=== PATIENT | female | born 1990 ===

== ENCOUNTER 2016-08-24 10:03 | Day surgery (SDC) | payer SELFPAY ==
[2016-08-24] VITALS (11 sets, daily range): BP systolic 90–114; BP diastolic 46–79; PULSE 65–83; RESP 13–18; O2SAT 95–100
[~2016-08-24 10:03] MED LIST: Ascorbic Acid PO; FERR-74 PO; IBUP-1827 PO
--- NOTE | 2016-08-24 11:40 | ED.REPORT ---
HPI-Abd Pain F Under 40 Date of Service August 24, 2016 ED Provider: Luis Dudley DO The patient is a 26 yo Mixte[place] female who presents to the ED for acute onset of bilateral lower abdominal cramping onset 0600am this morning. Patient reports that she passed a big clot, about the size of a golf ball, soon after the onset of the abdominal pain. The pain is similar to a bad menstrual cramping. She also admits to bilateral lower back pain. She reports to have a Nexplanon placed after her last delivery 1yr2mo ago. However, she had it removed in 01/2016 for desire to get . She reports no menstrual period every since the Nexplanon placement and even after it was removed. She admits to being sexually active. She denies any other symptoms, including nausea, vomiting, dysuria, fever, chills, headache, or dizziness. No aggravating or alleviating factors. Patient does not have a doctor. Dr. Connie Harvey is her HOUSING INSTALLER at [facility]. Patient denies any medical issue or taking any medication. There is no qunb per diem interpreter available and the foreign language interpreter has tried to talk to the patient, but she seems confused. Nursing Notes Stated Complaint: STOMACH ACHE/ 1 MONTH Chief Complaint: Female Abdominal Pain Nursing Notes Reviewed: Yes Allergies: Coded Allergies: No Known Allergies (Verified Allergy, Unknown, 06/20/15) Scheduled ([Ascorbic Acid]) 500 MG TABLET 500 MG PO BIDWM Ferrous Sulfate (Feosol) 325 Mg Tablet 325 MG PO BIDWM Scheduled PRN Ibuprofen (Ibuprofen) 600 Mg Tablet 600 MG PO Q6H PRN PRN For Mild Pain General Time Seen by MD: 11:39 Chief Complaint Abdominal pain, Pelvic pain, Vaginal bleeding Hx Obtained From: Patient Arrived By: Walk-in Sudden in Onset?: Yes Onset Occurred: 1 - 4 hours ago Symptom Duration: Since onset Progression since Onset: Constant Location: : Flank left: Flank right: LLQ: Lower-adnexal region L: Lower- adnexal region R: RLQ Quality: Painful, Throbbing Radiation: : Does not radiate Severity: Current: Mild Severity: Maximum: Moderate Associated with: Reports: Back pain, Vaginal bleeding, Denies: Anorexia, Chest pain, Chills, Constipation, Diarrhea, Dysuria, Fever , Nausea, Shortness of breath, Urinary frequency, Urinary tract symptoms, Vomiting Pertinent Negative: Pt denies other symptoms Status: Positive - ED urine HCG Sexual History / Control: Reports Pt is sexually active : 2 Para: 2 Recent Healthcare: No recent doctor visit, No recent hospitalization Similar Sx Previous: No Risk Factors Ectopic Risk Stratification No risk factors Past Medical History Past Medical History None Past Surgical History None Family History Noncontributory Smoking History Never Smoker Social History Alcohol Use: Denies alcohol use Drug Use: Denies drug use Other Social History: , Local resident Ambulatory Status Independent Review of Systems Constitutional: Denies: Chills, Fatigue, Fever, Weakness - generalized Respiratory: Denies: Dyspnea on exertion, Hemoptysis, Non-productive cough, Pleuritic pain, Shortness of breath, Wheezing Cardiovascular: Denies: Chest pain, Edema, Orthopnea, Palpitations, Syncope GI: Reports: Abdominal pain, Anorexia, Denies: Constipation, Diarrhea, Dysphagia, Nausea Female: Reports: Flank pain, Pelvic pain, , Vaginal bleeding - abnl , Denies: Urinary frequency, Urinary urgency Musculoskeletal: Reports: Back pain, Denies: Joint pain, Joint swelling, Lumbar pain Complete sys rev & neg: except as marked. Physical Exam Initial Vital Signs Vital Signs (First) Date Time Temp Pulse Resp B/P Pulse Ox O2 Delivery O2 Flow Rate FiO2 08/24/16 10:52 37.0 83 15 107/70 100 08/24/16 17:15 Room Air Initial VS: Reviewed General/Constitutional: Awake, Alert, No acute distress, Well appearing, Well developed, Well nourished, Cooperative, Not toxic appearing Respiratory / Chest: Atraumatic, Breath sounds NL, Breath sounds = bilat, No respiratory distress, No rales Cardiovascular: Heart rate NL, Regular rhythm, Heart sounds NL, No murmurs, No rubs, Pulses = bilaterally Abdomen: Atraumatic, Soft, No guarding, No rebound, BS normoactive, No distention Tenderness/Guarding/Rebound: Positive: Tender LLQ... (Moderate), Tender RLQ... (Moderate), Tender flank L, Tender flank R, Tender suprapubic Back: Atraumatic Flank / Spine / Paraspinal: Positive: Flank tender L, Flank tender R Head / Eyes: Atraumatic, Normocephalic, PERRL, EOMI Skin: Atraumatic, Color NL, No rash Female Genitourinary: Bridges Supervisor present (Pit Furnace Melter Ev), No adnexal mass Vaginal Bleeding / Discharge: Positive: Bleeding moderate, Clots present, Discharge bloody, Tissue present Pelvic Exam: Positive: Uterus tender Neurologic: Oriented X3, Speech NL Interpretation & Diagnostics Lab Results Interpretation Result Diagram: 08/24/16 1644 Test 08/24/16 11:50 08/24/16 13:20 08/24/16 14:30 08/24/16 16:44 Urine Color Yellow (YELLOW) Urine Appearance Slightly cloudy Urine pH 5.5 (5.0-8.0) Urine Specific [place] 1.025 (1.003-1.035) Urine Protein Tracemg/dL (NEG,TRACE) Urine Glucose (UA) Negativemg/dL (NEGATIVE) Urine Ketones Negativemg/dL (NEGATIVE) Urine Occult Blood Large (NEGATIVE) Urine Nitrite Negative (NEGATIVE) Urine Bilirubin Negative (NEGATIVE) Urine Urobilinogen Normalmg/dL (NORMAL) Urine Leukocyte Esterase Negative (NEGATIVE) Urine RBC >50/hpf (0-2) Urine WBC 0-5/hpf (0-5) Urine Epithelial Cells Occasional/hpf (NONE-MOD) Urine Crystals None seen (NONE SEEN) Urine Bacteria Few/hpf (NONE-FEW) Urine Hyaline Casts None/lpf (NONE) Urine Granular Casts None seen (NONE SEEN) Urine Waxy Casts None seen (NONE SEEN) Urine Red Blood Cell Casts None seen (NONE SEEN) Urine White Blood Cell Casts None seen (NONE SEEN) Urine Mucus Present (None Seen) Urine Trichomonas None seen (NONE SEEN) Urine Yeast None (NONE SEEN) Urinalysis Comment None Urine Culture Reflexed Not indicated White Blood Count 9.4th/mm3 (3.8-10.1) Red Blood Count 5.08mil/mm3 (3.90-5.20) Mean Corpuscular Volume 55.9fL (81-100) Mean Corpuscular Hemoglobin 16.3pg (27.0-35.0) Mean Corpuscular Hemoglobin Concent 29.2% (32.0-37.0) Red Cell Distribution Width 21.1% (12.3-15.4) Platelet Count 457bil/L (150-400) HCG Beta Subunit 2274mIU/mL Hold Urine Received (Received) Hemoglobin 7.7g/dL (12.0-15.6) Hematocrit 26.2% (35.0-46.0) Lab Results Interpretation: Significant microcytic anemia US Focused OB IMPRESSION: Endometrial lining thickness of 14.3 mm with a possible fundal gestational sac which if in fact does represent a viable gestation it would be an estimated gestational age of 5 weeks 3 days, plus or -7 days. Correlation with quantitative beta hCG is recommended to assist in determining whether this correlates with the suspected gestational age of this patient. The correlation with quantitative beta hCG may be necessary over several days to determine whether a viable gestation is present. Currently there is no sonographic evidence for ectopic but ectopic has not been entirely excluded. Exam Performed by: Radiologist Re-Eval/Medical Decision Med Decision/Clinical Course 26 yo female with no history of who presents to the ED with sudden onset of lower abdominal cramping with passing of vaginal tissue at 0600 today. She had a Nexplanon removed in 01/2016, but she never has any menstrual period for over a year. She is sexually active, but is not aware that she is or not. Urine test in the ER is positive, which correlates with the beta HCG of 2274 and the U/S finding of a possible fundal gestational sac which if in fact does represent a viable gestation it would be an estimated gestational age of 5 weeks 3 days, plus or -7 days. There is no sonographic evidence for ectopic . On exam, patient was found to have fundal tenderness with significant amount of vaginal bleeding and tissue on the pelvic exam. Her cervix was found to be about 1-2 cm dilated, which confirmed the likelihood of an incomplete . Dr. Ware (HOUSING INSTALLER) agreed with the plan to admit the patient and perform an urgent D&C today. Patient also has significant microcytic anemia with hemoglobin of 8.3 that dropped to 7.7. Type and cross was done and will continue to monitor the patient 's H/H for possible transfusion. Patient denies history of anemia, but Iron supplement is on her medication list. Further workup for the anemia to rule out iron deficiency vs. Thalassemia was suggested to the patient, but will likely be done as outpatient. Patient was started on IVF with NS @ 100mls/hr and a dose of Toradol IV 30mg once in the ED. Patient was transferred to the OR in stable condition. Source of Hx: Old records Re-Evaluation/Progress : Time of Eval: 15:00 )( Re-Eval Abdomen: Soft Patient Status: Condition improved Re-Evaluation/Progress Note: Patient reports improvement of her abdominal pain. Pelvic exam was done by me around 1500 with Ev (per diem interpreter) as a cardiac cath tech. There was significant amount of vaginal bleeding and tissues that the os could not be visualized. Consultation : Referral / Consult Name: Matt Ware MD Consulted With: On-call physician (HOUSING INSTALLER) Hyster Driver: Agrees with eval, Accepts admit Note: Case was discussed with Dr. Ware for possible D&C. Dr. Ware evaluated the patient at 1700 with a bimanual exam and noted the os to be 1-2cm dilated. He will contact the OR for emergent D&C. Differential Diagnosis: Positive: Acute abdominal pain, Appendicitis, Cholecystitis, Cholelithiasis, Constipation, Ectopic preg ruptured, Ectopic , Gastritis, Gastroenteritis, Intrauterine , Malignancy, Ovarian cyst, Ovarian torsion, Urinary tract infection Counseled Regarding: Diagnosis, Lab results Discharge & Departure Departure Notes Dr. Ware admitted the patient. Primary Impression: Incomplete Additional Impression: Microcytic anemia Disposition: Home Discharge Condition All VS Reviewed: Yes Condition: Stable Referrals: oCnnie Harvey MD (PCP) Crit Care Except Billable Proc Time Spent: 75-104 minutes Services Performed: Patient management by me, Time spent at bedside, Reviewing test results Critical Care Notes: see MDM Scribe Attestation Portions of this note were transcribed by Val Osorio. I, Dr. Dudley personally performed the history, physical exam and medical decision-making; I reviewed and confirmed the accuracy of the information in the transcribed note. Signed by: Renetta Mujica, 08/24/2016 at 1215. Attending Statment The patient was seen and examined together with Dr. Jensen on 08/24/16 and I agree with the history, exam and plan as outlined in the note above. copies to: Connie Harvey MD, Timothy S DO August 24, 2016 11:40 Val Osorio August 24, 2016 12:08 Devin Jensen DO August 24, 2016 15:11
[2016-08-24 13:02] LABS: APPEARANCE,URINE SLIGHTLY CLOUDY (CLEAR,HAZY); COLOR,URINE YELLOW (YELLOW); OCCULT BLOOD,URINE LARGE (NEGATIVE); PH,URINE 5.5 (5.0-8.0); UROBILINOGEN,URINE NORMAL (NORMAL)
[2016-08-24 13:38] LABS: Mean Corpuscular Hemoglobin 16.3 pg (27.0-35.0); Mean Corpuscular Volume 55.9 fL (81-100)
[2016-08-24] MEDS ORDERED: 0.9% Sodium Chloride 1,000 ML IV SCH (15:00)
--- NOTE | 2016-08-24 15:10 | DRSVH ---
PROCEDURE: US PELVIC SONOGRAM + TRANSVAGINAL SONOGRAM INDICATIONS: early vaginal bleeding TECHNIQUE: Real-time scanning was performed of the pelvic organs, with image documentation. Additional endovagi nal scanning was necessary due to incomplete visualization of the adnexal and endometrial structures by transabdominal scanning. COMPARISON: None. FINDINGS: (orthogonal measurements) Uterus size: 5.7 x 7.6 x 10.1 cm, anteverted Endometrium thickness: 14.3 with a possible gestational sac in the fundal portion of the endometrial canal, which if this does in fact represent a viable intrauterine gestation would have a gestational age estimate of 5 weeks 3 days, plus or -7 days. Right ovary size: 2.3 x 2.2 x 2.6 cm Left ovary size: 2.7 x 2.4 x 1.8 cm Transabdominal scanning: Limited scanning through the kidneys shows no hydronephrosis. No pathologi c free abdominal or pelvic fluid. Endovaginal scanning: Uterus: Uterus is normal in size and appearance. Endometrium is within normal physiologic limits. Ovaries: Within normal physiologic limits. IMPRESSION: Endometrial lining thickness of 14.3 mm with a possible fundal gestational sac which if i n fact does represent a viable gestation it would be an estimated gestational age of 5 weeks 3 days, plus or -7 days. Correlation with quantitative beta hCG is recommended to assist in determining whet her this correlates with the suspected gestational age of this patient. The correlation wit h quantitative beta hCG may be necessary over several days to determine whether a viable gestation is present. Currently there is no sonographic evidence for ectopic but ectopic has not been entirely excluded. Dictated by: Reid Jacobsen M.D. on 08/24/2016 at 15:05 Approved by: Reid Jacobsen M.D. on 08/24/2016 at 15:08
--- NOTE | 2016-08-24 17:54 | PCM.HPANE ---
Patient Data Date of Service: August 24, 2016 Surgeon Admitting Provider: Attending Provider: [facility] Other Provider: Reason for Visit Stomach Ache/ 1 Month Ht/WT & BMI Body Mass Index Allergies Coded Allergies: No Known Allergies (Verified Allergy, Unknown, 06/20/15) Past Anesthesia History Anesthesia History: Denies:: Abnormal Airway, Anesthesia Reactions, Difficult Intubation, Fam Anesthesia Reaction, Fam Malignant Hypertherm, Malignant Hyperthermia Diabetes History Hx Diabetes?: No MRSA MRSA: No Medications Hypertension Medication: No Home Meds Incl Beta Pilar: No Active Scripts Ferrous Sulfate (Feosol)325 Mg [id number] Mg PO BIDWM anemia #180 TABLET Prov:Kasia Booker MD 06/21/15 Ibuprofen 600 Mg [id number] Mg PO Q6H PRN For Mild Pain #60 TABLET Prov:Kasia Booker MD 06/21/15 [Ascorbic Acid] (Vitamin C)500 MG TABLET No Conflict [id number] Mg PO BIDWM Use with iron to help absorb #180 Prov:Kasia Booker MD 06/21/15 History History of ENT Problems?: No HEENT History: Denies:: Abnormal Airway Cataracts Difficult Intubation Dysphagia Glaucoma Hearing Problem Sinus Problem TMJ Denture Type: None Teeth Condition: Within Normal Limits Hx of Heart Problems?: No Cardiovascular History: Denies:: Congestive Heart Failure Hypertension Hx of Respiratory Problem?: No Respiratory History: Denies:: Tuberculosis Hx Neurologic Problems?: No Hx of GI Problems?: No Hx of Problems?: No Other History/Comment incomplete ab (present) Hx Musculoskeletal Problems?: No Hx of Psycho/Social Problems?: No Hx Surgeries?: No Hx Any Other Health Problems?: No Hx Diabetes: No Hx Alcohol Use: NoHx Substance Use: No Smoking Status: Never Smoker Have You Smoked inLast 12 mo: No Stop/Bang Treated for Sleep Apnea?: No Do You Have a CPAP Machine?: No RAINE Risk Assessment: Low Risk, <3 Yes Risk Assessment Category Category 1A: Patient has history of documented sleep apnea, and HAS NOT received any narcotic, sedative or anesthesia administration during this stay. Category 1B: Patient has history of documented sleep apnea, and HAS received any narcotic , sedative or anesthesia administration during this stay Category 2: Patient has SUSPECTED Obstructive Sleep Apnea, and HAS received any narcotic , sedative or anesthesia administration during this stay. Category 3: Patient has SUSPECTED Obstructive Sleep Apnea and HAS NOT received narcotic, sedative or anesthesia administration during this stay. Category 4: Outpatient in Procedural Areas with known sleep apnea or who screen positive for High Risk via the STOP/BANG questionnaire. Exam Exam Vital Signs Vital Signs Date Time Temp Pulse Resp B/P Pulse Ox O2 Delivery O2 Flow Rate FiO2 08/24/16 17:15 37.3 80 16 109/68 99 Room Air 08/24/16 10:52 37.0 83 15 107/70 100 General Appearance: Alert, Oriented X3, Cooperative, No Acute Distress HEENT/AIRWAY: MP 2 Lungs: Clear to Auscultation, Normal Air Movement Heart: Exam Unremarkable, Regular Rate/Rhythm Meds/Labs/Diagnostics Admission Meds Current Medications Sodium Chloride (Normal Saline) 1,000 ml @ 100 mls/hr Q10H IV Last administered on 08/24/16 15:56; Start 08/24/16 at 15:00 Ketorolac Tromethamine (Toradol Inj) 30 mg ONCE ONCE IVPUSH Last administered on 08/24/16 15:56; Start 08/24/16 at 15:00; Stop 08/24/16 at 15:16; Status DC Labs Test 08/24/16 11:50 08/24/16 13:20 08/24/16 14:30 08/24/16 16:44 Urine Color Yellow (YELLOW) Urine Appearance Slightly cloudy Urine pH 5.5 (5.0-8.0) Urine Specific [place] 1.025 (1.003-1.035) Urine Protein Tracemg/dL (NEG,TRACE) Urine Glucose (UA) Negativemg/dL (NEGATIVE) Urine Ketones Negativemg/dL (NEGATIVE) Urine Occult Blood Large (NEGATIVE) Urine Nitrite Negative (NEGATIVE) Urine Bilirubin Negative (NEGATIVE) Urine Urobilinogen Normalmg/dL (NORMAL) Urine Leukocyte Esterase Negative (NEGATIVE) Urine RBC >50/hpf (0-2) Urine WBC 0-5/hpf (0-5) Urine Epithelial Cells Occasional/hpf (NONE-MOD) Urine Crystals None seen (NONE SEEN) Urine Bacteria Few/hpf (NONE-FEW) Urine Hyaline Casts None/lpf (NONE) Urine Granular Casts None seen (NONE SEEN) Urine Waxy Casts None seen (NONE SEEN) Urine Red Blood Cell Casts None seen (NONE SEEN) Urine White Blood Cell Casts None seen (NONE SEEN) Urine Mucus Present (None Seen) Urine Trichomonas None seen (NONE SEEN) Urine Yeast None (NONE SEEN) Urinalysis Comment None Urine Culture Reflexed Not indicated White Blood Count 9.4th/mm3 (3.8-10.1) Red Blood Count 5.08mil/mm3 (3.90-5.20) Mean Corpuscular Volume 55.9fL (81-100) Mean Corpuscular Hemoglobin 16.3pg (27.0-35.0) Mean Corpuscular Hemoglobin Concent 29.2% (32.0-37.0) Red Cell Distribution Width 21.1% (12.3-15.4) Platelet Count 457bil/L (150-400) HCG Beta Subunit 2274mIU/mL Hold Urine Received (Received) Hemoglobin 7.7g/dL (12.0-15.6) Hematocrit 26.2% (35.0-46.0) Plan Impression Patient chart reviewed, patient interviewed and anesthestic plan with risks, benefits, and alternatives discussed, and informed consent obtained. NPO per Anesth. Guidelines: Yes ASA Physical Status: ASA1 Normal Healthy Anesthetic Plan: GA Bene/Risks/Altern/Consents: Yes HP Complete Prior to Induction: Yes Trino Collazo MD August 24, 2016 17:54
[2016-08-24] MEDS ORDERED: fentaNYL-PF 50 mCg/mL 2 mL Inj ONE (17:59)
[2016-08-24] MEDS ORDERED: Dexamethasone 4 mg/mL Inj ONE (17:59)
[2016-08-24] MEDS ORDERED: Methylergonovine 0.2 mg/mL Inj ONE (17:59)
[2016-08-24] MEDS ORDERED: Ondansetron 2 mg/mL 2 mL Inj ONE (17:59)
[2016-08-24] MEDS ORDERED: Propofol 10,000 mCg/mL 20 mL Inj ONE (17:59)
--- NOTE | 2016-08-24 18:07 | HP ---
[address] [address] HISTORY AND PHYSICAL PATIENT: LOIS ORTIZ : 1990 MR#: [id number] ADMIT: 08/24/2016 JOB ID: [id number] DATE: 08/24/2016 HISTORY OF PRESENT ILLNESS: The patient is a 26-year-old, 3, para 2, who presented to the emergency department with vaginal bleeding with clots. The patient has a history of two spontaneous vaginal deliveries, following the last delivery, she had Nexplanon implant placed, it was removed in January 2016 when she decided that she may want to get . Since removal of the implant, the patient has not had any menstrual periods. She presented to the emergency department today with diffuse bleeding with clots. The ultrasound was done and showed increased endometrial thickness, small 5 mm cystic structure that may represent gestational sac corresponding to 5 weeks and 3 days of . The beta quantitative hCG was 2200. The patient had profuse bleeding with clots and passing tissue. ALLERGIES: NKDA. MEDICAL HISTORY: Noncontributory. FAMILY HISTORY: Noncontributory. SOCIAL HISTORY: Patient denies smoking, alcohol use, or illicit recreational drug use. PHYSICAL EXAMINATION: Vital signs: Temperature 37.3, pulse 80, respiratory rate 16, blood pressure 109/68, pulse oximetry on room air is 99. HEENT: PERRLA, pale mucosa. Chest: Clear bilaterally. No adventitious sounds. Good respiratory effort. Cardiovascular: Regular rate and rhythm. The abdomen is nondistended, moderately tender in the suprapubic area. There is no rebound and no rigidity. Vaginal exam: There is diffuse bleeding. The cervix is 1.5 cm dilated, the uterus is moderately tender on bimanual exam. Adnexa nontender. Extremities: No pitting edema. LABS: WBC count 9.4, hemoglobin 7.7, hematocrit 26.0. Platelets 457. There is a slight drop in the level of hematocrit from 28.4-26.0 within half an hour of time when the labs were repeated. The ultrasound was done and showed uterus measuring 5.7 x 7.6 x 10.1 cm, endometrial thickness is 14.3 mm. The ovaries are normal in size bilaterally. There are questionable cystic structures that may represent gestational sac. The level of beta hCG is 2274. The urinalysis shows large amount of blood, negative for nitrates. Negative leukocyte esterase. ASSESSMENT AND PLAN: The patient is a 26-year-old, 3, para 2, presents with incomplete spontaneous miscarriage, early , bleeding, hemodynamically stable. The patient is Mezte[place] speaking and all communication and consent was obtained through the full time staff interpreter. The consent was obtained for dilation and curettage. The risks and benefits of the procedure were explained, risks including, but not limited to, bleeding, infection, uterine perforation. The consent for transfusion and for disposal of tissue was obtained as well. IV fluid started with lactated Ringer at 125 mL/h. The patient is going to the operating room. MARGARITAD
[2016-08-24] MEDS ORDERED: Lactated Ringer's 1,000 ML IV ONE (18:21)
[2016-08-24] MEDS ORDERED: Lactated Ringer's 500 ML IV PRN (18:36)
[2016-08-24] MEDS ORDERED: Lactated Ringer's 1,000 ML IV SCH (18:36)
[2016-08-24] MEDS ORDERED: Ondansetron 2 mg/mL 2 mL Inj IVPUSH PRN ×2 (18:40→19:05)
[2016-08-24] MEDS ORDERED: Dexamethasone 4 mg/mL Inj IVPUSH PRN (18:40)
[2016-08-24] MEDS ORDERED: EPHEDrine Sulfate 50 mg/mL Inj IVPUSH PRN (18:40)
[2016-08-24] MEDS ORDERED: Labetalol 5 mg/mL 4 mL Inj IV PRN (18:40)
[2016-08-24] MEDS ORDERED: Phenylephrine 10,000 mCg/mL Inj IVPUSH PRN (18:40)
[2016-08-24] MEDS ORDERED: fentaNYL-PF 50 mCg/mL 2 mL Inj IVPUSH PRN (18:40)
[2016-08-24] MEDS ORDERED: HYDROmorphone 1 mg/mL Inj IVPUSH PRN (18:40)
--- NOTE | 2016-08-24 19:03 | PCM.DIMED ---
Discharge Instructions Date of Service August 24, 2016 Dates of Hospitalization Diet Discharge Diet: No restrictions Activity Discharge Activity: No restrictions Call your provider Call your provider for: Fever or Chills, Shortness of breath, Bleeding, Chest pain, Vomitting, Excessive diarrhea, Weakness (unilateral) Patient Instructions Follow-up with PCP in: 2 weeks Matt Ware MD August 24, 2016 19:03
[2016-08-24] MEDS ORDERED: oxyCODONE-Acetamin 5-325 mg Tablet PO PRN (19:05)
[2016-08-24] MEDS ORDERED: FERR-74 PO (19:05)
[2016-08-24] MEDS ORDERED: diphenhydrAMINE 25 mg Capsule PO PRN (19:05)
[2016-08-24] MEDS ORDERED: IBUP-1827 PO (19:05)
--- NOTE | 2016-08-24 19:23 | PCM.ANEP1 ---
Post Anesthesia PACU Phase 1 Assessment Date of Service: August 24, 2016 Vital Signs Vital Signs Date Time Temp Pulse Resp B/P Pulse Ox O2 Delivery O2 Flow Rate FiO2 08/24/16 19:15 67 13 108/67 100 Simple Mask 10 08/24/16 19:10 67 13 90/52 100 Simple Mask 15 08/24/16 19:05 65 13 90/49 100 Simple Mask 15 08/24/16 19:00 36.6 71 13 93/46 100 Simple Mask 15 08/24/16 17:15 37.3 80 16 109/68 99 Room Air Anesthetic Administered: GA Level of Alertness: Sleepy, easy to arouse RIVERA's with Equal Strength: Yes Pain: No Pain Scale Score: 5 Nausea or Vomiting: No CV Function & Hydration Stable: Yes Airway Device: Oxygen Delivery: Simple Mask Lungs: Clear to Auscultation, Normal Air Movement Dermatome Level: Full Sensation PACU Phase 2 Assessment Complications: No Follow up Care: No Patient Instructions Provided: N/A Trino Collazo MD August 24, 2016 19:23
--- NOTE | 2016-08-24 19:43 | OP ---
[address] [address] OPERATIVE REPORT PATIENT: LOIS ORTIZ : 1990 MR#: [id number] ADMIT: 08/24/2016 JOB ID: [id number] DATE OF SURGERY: 08/24/2016 SURGEON: Matt Ware MD PROCEDURE: Suctioning dilation and curettage. PREOPERATIVE DIAGNOSIS(ES): Incomplete . POSTOPERATIVE DIAGNOSIS(ES): Incomplete . ANESTHESIA: General. ESTIMATED BLOOD LOSS: 50 mL. ESTIMATED URINE OUTPUT: 100 mL. FLUIDS: 333 mL of lactated Ringer. COMPLICATIONS: None. FINDINGS: Normal appearance of the perineum, vulva, vagina and the cervix. The cervix was 1 cm dilated with products of conception protruding through it. Moderate amount of bleeding. The uterus 10 weeks in size. Midposition, mobile. PROCEDURE IN DETAIL: The patient was brought to the operating room, where she underwent general anesthesia without difficulty. The patient was placed in dorsal lithotomy position using candy-cane stirrups. She was prepped and draped in usual surgical fashion. Two Rodriguez retractors were placed in the vagina. The cervix was identified and grasped with a tenaculum. It was dilated using Hegar dilators to a size of 12 mm. Using 10 mm curved suctioning curette, suction D and C was performed and the specimen, products of conception was sent to Pathology. Also the uterine cavity was reviewed with the use of polyp forceps and all the tissue that was removed was sent to Pathology. The curetting was completed with mid sized sharp curette. The patient received 0.2 mg of Methergine intraoperatively, good hemostasis was achieved. All the instruments were removed. The patient was repositioned back into the supine position. She tolerated the procedure well and was transferred to the recovery room in stable condition.
--- NOTE | 2016-08-29 11:22 | PATH ---
SURGICAL PATHOLOGY Attending Physician:Matt Ware MD CASE STATUS: Signed Out PATIENT NAME: LOIS ORTIZ PID: [id number] : 1990 DATE COLLECTED:08/24/2016 00:00 SPECIMEN: Products of conception CLINICAL HISTORY: INCOMPLETE 1). 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 ICD10 O02.1 GROSS DESCRIPTION: The specimen is received in one formalin filled container labeled with the patient's name, sublabeled "products of conception" and consists of multiple portions of tissue which aggregate to 7.0 x 4.0 x 1.5 CM. No grossly recognizable parts are observed. Skid Machine Operator sections are submitted in 3 cassettes. 08/25/2016 [facility] MICRO DESCRIPTION: See diagnosis. ICD-9 CODES: CPT CODES: 1: 78665 Electronically Signed Out Sebastián Mcgarry MD [facility] Pathology [facility] [address], [place] [address] Technical component performed at [facility], [facility] [address], [place], [address]
== END 2016-08-24 23:59 | disposition home or self-care (01) ==
LOC: SED 10:03 → ORA 17:58
PROVIDERS: ATTEND Legal Medicine
DX: O03.4 Incomplete spontaneous abortion without complication (principal); Z3A.10 10 weeks gestation of pregnancy; D50.9 Iron deficiency anemia, unspecified
CPT/HCPCS: 36415; 59812; 76830; 76856; 81000; 81025; 84702; 85014; 85018; 85027; 96361; 96374; 99284; J1100; J1885; J2210; J2250; J2405; J3010; J7030; J7120